=== PATIENT | female | born 1950 | race Caucasian/White ===

== ENCOUNTER → 2017-01-10 | Outpatient (CLI) | payer OTHER ==
[~2017-01-10] MED LIST: AMITIZA8 MCG PO; FLEXERIL10 MG PO; ZOLOFT PO; [UNRECOGNIZED DRUG - REMARK]
--- NOTE | ~2017-01-10 | CR139 ---
[facility] A Service of [facility] RADIOLOGY TEXT RESULTS PATIENT: PACO MCKEON LOCATION: [facility] : 54 UNIT #: [id number] AGE: [address]: Emperatriz Schroeder MD SEX: F ORDER DR: [id number] [facility] [address] [place], [place] [address] [id number] O MR#: [id number] Acc #: [id number] NAME: PACO MCKEON. : 1950 SEX: F STUDY DATE/TIME: 01/10/2017 10:15 UNIT: [facility] ROOM: STUDY DESCRIPTION: CR Hand 2 Views Rt Attending Physician: Emperatriz Schroeder M.D. Referring Physician: Emperatriz Schroeder M.D. Ordering Physician: Emperatriz Schroeder M.D. Primary Care Physician: Emperatriz Schroeder M.D. MEDICAL IMAGING REPORT This report is preliminary unless electronic signature is present EXAM Right hand. INDICATION Pain in 4th digit for several months. FINDINGS 3 views of the right hand were obtained. On the AP view, there is some minimal spurring from the PIP joint of the 4th digit, and there is a small 2 mm bone density object adjacent to the 4th digit. I don't think that this represents a fracture. The other bones are normal. IMPRESSION There are minimal degenerative changes in the 4th PIP joint, otherwise, the study is normal. Dictated by... Tomás Swain M.D. THIS IS AN ELECTRONICALLY VERIFIED REPORT Tomás Swain M.D. at 01/13/2017 1:37 PM JOHN/erika TD: 01/10/2017 18:36 JOB #: [id number] MEDICAL IMAGING REPORT Page 1 of 1 COPY
== END | disposition home or self-care (01) ==
LOC: CRAD 09:55
DX: M79.89 Other specified soft tissue disorders (principal)
CPT/HCPCS: 73120